=== PATIENT | female | born 1995 | race Caucasian/White ===

== ENCOUNTER 2019-10-02 04:30 | Emergency (ER) | payer MEDICAID ==
[~2019-10-02] VITALS: Ht 167.6 cm; Wt 59.1 kg
[2019-10-02] MEDS ORDERED: LIDOcaine Viscous 15ml cup TP ONE (04:40)
[2019-10-02] MEDS ORDERED: mag hydrox/Alum hydrox/simeth 30ml oral suspension PO ONE (04:40)
[2019-10-02] MEDS ORDERED: famotidine 20mg tablet PO ONE (04:40)
[2019-10-02 05:24] LABS: URINE HCG NEGATIVE (NEG)
[2019-10-02 05:34] LABS: CLARITY,URINE SLIGHTLY CLOUDY (Clear); COLOR,URINE YELLOW (Yellow); GLUCOSE, URINE NEGATIVE (Neg); KETONES,URINE NEGATIVE (Neg); LEUKOCYTE ESTERASE ,URINE TRACE (Neg); NITRITES, URINE NEGATIVE (Neg); OCCULT BLOOD,URINE LARGE (Neg); PROTEIN,URINE NEGATIVE (Neg); UROBILINOGEN,URINE 0.2 E.U/dL (0.2-1.0)
[2019-10-02 05:34] LABS: ALANINE AMINOTRANSFERASE 19 U/L (12-78); ALBUMIN 3.8 G/DL (3.4-5.0); ALKALINE PHOSPHATASE 103 IU/L (46-116); ANION GAP 7 (8-16); ASPARTATE AMINO TRANSFERASE 11 U/L (10-37); BILIRUBIN,TOTAL 0.4 MG/DL (0.1-1.0); BLOOD UREA NITROGEN 16 MG/DL (7-18); BUN/CREATININE RATIO 21.1 (6.6-38.0); CALCIUM 9.3 MG/DL (8.5-10.1); CHLORIDE 104 MMOL/L (99-107); CREATININE 0.76 MG/DL (0.40-0.90); GLUCOSE 101 MG/DL (70-104); POTASSIUM 3.3 MMOL/L (3.5-5.1); SODIUM 140 MMOL/L (135-145); TOTAL CARBON DIOXIDE 28.8 MMOL/L (24-32); TOTAL PROTEIN 7.5 G/DL (6.4-8.2); eGFR > 90 ML/MIN
[2019-10-02 05:41] LABS: BETA HCG,QUANTITATIVE < 1.0 mIU/ml; LIPASE 153 U/L (73-393)
[2019-10-02] MEDS ORDERED: HYDROcodone/acetaminophen 5mg/325mg tablet PO ONE (05:50)
[2019-10-02 05:51] LABS: UA COLLECTION TYPE CLN CATCH MIDSTREAM
[2019-10-02 05:51] LABS: BASOPHILS % (AUTO) 0.1 % (0-1); EOSINOPHILS # (AUTO) 0.1 X10'3 (0-0.9); EOSINOPHILS % (AUTO) 1.8 % (0-6); HEMATOCRIT 37.9 % (35.0-45.0); HEMOGLOBIN 12.9 g/dl (12.0-16.0); LYMPHOCYTES # (AUTO) 1.5 X10'3 (1.1-4.8); LYMPHOCYTES % (AUTO) 23.1 % (21-51); MEAN CORPUSCULAR HEMOGLOBIN 29.7 PG (27.0-31.0); MEAN CORPUSCULAR HGB CONC 34.1 g/dL (33.0-36.5); MEAN CORPUSCULAR VOLUME 86.9 FL (78-98); MEAN PLATELET VOLUME 10.1 FL (7.4-10.4); MONOCYTES # (AUTO) 0.6 X10'3 (0-0.9); MONOCYTES % (AUTO) 9.5 % (2-12); NEUTROPHILS # (AUTO) 4.2 X10'3 (1.8-7.7); NEUTROPHILS % (AUTO) 65.5 % (42-75); PLATELET COUNT 167 X10'3 (140-440); RED BLOOD COUNT 4.36 X10'6 (4.20-5.60); RED CELL DISTRIBUTION WIDTH 13.7 % (11.5-14.5); WHITE BLOOD COUNT 6.4 X10'3 (4.5-11.0)
[2019-10-02 05:56] LABS: BACTERIA,URINE FEW /HPF (Neg); MUCUS STRANDS MANY /LPF (Neg); SQUAMOUS EPITHELIAL CELL,UR MANY /LPF (FEW)
[2019-10-02 05:57] LABS: TRICHOMONAS,URINE FEW /HPF (NEGATIVE); YEAST FEW /HPF (NEGATIVE)
[2019-10-02 05:59] LABS: H PYLORI ANTIBODY NEGATIVE (Neg)
[2019-10-02] MEDS ORDERED: OMEP20TA5 PO (06:08)
[2019-10-02] MEDS ORDERED: NO HOME MEDS (06:15)
[2019-10-02 07:44] VITALS: BP 115/68
--- NOTE | 2019-10-02 07:45 | NUR ---
PT FEELING BETTER THAN WHEN SHE CAME IN. READY TO GO HOME.
== END 2019-10-02 07:47 | disposition home or self-care (01) ==
LOC: ER 04:30
DX: K29.70 Gastritis, unspecified, without bleeding (principal)
CPT/HCPCS: 36415; 74176; 80053; 81001; 81025; 83690; 84702; 85025; 86677; 99284

== ENCOUNTER 2019-10-13 11:09 | Emergency (ER) | payer MEDICAID ==
[~2019-10-13] VITALS: Ht 167.6 cm; Wt 57.3 kg
[~2019-10-13 11:09] MED LIST: NO HOME MEDS
[2019-10-13 11:26] VITALS: BP 124/82
--- NOTE | 2019-10-13 13:48 | NUR ---
PT. CALLED MULTIPLE TIMES. WAS HERE LESS THEN 10 DAYS AGO. DIAGNOSED WITH GASTRITIS
== END 2019-10-13 13:00 | disposition left against medical advice (07) ==
LOC: ER 11:10
DX: R10.9 Unspecified abdominal pain (principal); R07.89 Other chest pain; Z53.21 Procedure and treatment not carried out due to patient leaving prior to being seen by health care provider
CPT/HCPCS: 93005

== ENCOUNTER 2020-03-20 20:41 | Emergency (ER) | payer MEDICAID ==
[~2020-03-20] VITALS: Ht 167.6 cm; Wt 65.0 kg
[2020-03-20] MEDS ORDERED: HYDR-3965 PO (21:11)
[2020-03-20 21:18] VITALS: BP 118/74
== END 2020-03-20 21:19 | disposition home or self-care (01) ==
LOC: ER 20:41
DX: H72.91 Unspecified perforation of tympanic membrane, right ear (principal); H92.01 Otalgia, right ear
CPT/HCPCS: 99283

== ENCOUNTER 2022-02-25 22:29 | Emergency (ER) | payer MEDICAID ==
[~2022-02-25] VITALS: Ht 167.6 cm; Wt 55.5 kg
[2022-02-25 22:53] LABS: CLARITY,URINE CLEAR (Clear); COLOR,URINE YELLOW (Yellow); GLUCOSE, URINE NEGATIVE (Neg); KETONES,URINE NEGATIVE (Neg); LEUKOCYTE ESTERASE ,URINE NEGATIVE (Neg); NITRITES, URINE NEGATIVE (Neg); OCCULT BLOOD,URINE NEGATIVE (Neg); PH,URINE 6.5 (4.8-8.0); PROTEIN,URINE NEGATIVE (Neg); UROBILINOGEN,URINE 0.2 E.U/dL (0.2-1.0)
[2022-02-25 22:54] LABS: URINE HCG NEGATIVE (NEG)
[2022-02-25 23:15] LABS: BASOPHILS % (AUTO) 0.3 % (0-1); EOSINOPHILS # (AUTO) 0.1 X10'3 (0-0.9); EOSINOPHILS % (AUTO) 2.1 % (0-6); HEMATOCRIT 39.5 % (35.0-45.0); HEMOGLOBIN 13.4 g/dl (12.0-16.0); LYMPHOCYTES # (AUTO) 1.8 X10'3 (1.1-4.8); LYMPHOCYTES % (AUTO) 42.3 % (21-51); MEAN CORPUSCULAR HEMOGLOBIN 29.3 PG (27.0-31.0); MEAN CORPUSCULAR HGB CONC 33.8 g/dL (33.0-36.5); MEAN CORPUSCULAR VOLUME 86.7 FL (78-98); MONOCYTES # (AUTO) 0.3 X10'3 (0-0.9); MONOCYTES % (AUTO) 7.2 % (2-12); NEUTROPHILS % (AUTO) 48.1 % (42-75); PLATELET COUNT 183 X10'3 (140-440); RED BLOOD COUNT 4.55 X10'6 (4.20-5.60); RED CELL DISTRIBUTION WIDTH 13.3 % (11.5-14.5); WHITE BLOOD COUNT 4.1 X10'3 (4.5-11.0)
[2022-02-25 23:16] LABS: UA COLLECTION TYPE CLN CATCH MIDSTREAM
[2022-02-25 23:23] LABS: ALANINE AMINOTRANSFERASE 26 U/L (12-78); ALBUMIN 4.1 G/DL (3.4-5.0); ALBUMIN/GLOBULIN RATIO 1.2 (1.1-1.5); ALKALINE PHOSPHATASE 79 IU/L (46-116); ANION GAP 13 (8-16); ASPARTATE AMINO TRANSFERASE 15 U/L (10-37); BILIRUBIN,TOTAL 0.3 MG/DL (0.1-1.0); BLOOD UREA NITROGEN 16 MG/DL (7-18); CALCIUM 8.5 MG/DL (8.5-10.1); CHLORIDE 105 MMOL/L (99-107); GLUCOSE 88 MG/DL (70-104); LIPASE 171 U/L (73-393); POTASSIUM 3.5 MMOL/L (3.5-5.1); SODIUM 142 MMOL/L (135-145); TOTAL CARBON DIOXIDE 23.7 MMOL/L (24-32); TOTAL PROTEIN 7.6 G/DL (6.4-8.2); eGFR 88 ML/MIN
[2022-02-26] MEDS ORDERED: ondansetron 4mg rapidly disintigrating tab PO ONE (01:00)
[2022-02-26] MEDS ORDERED: dicyclomine 10 MG capsule PO ONE (01:00)
[2022-02-26] MEDS ORDERED: ibuprofen tablet 400 MG TABLET PO ONE (01:00)
[2022-02-26] MEDS ORDERED: MELO-100 PO (01:00)
[2022-02-26] MEDS ORDERED: ONDA8TAB13 PO (01:00)
[2022-02-26] MEDS ORDERED: acetaminophen 325mg tablet PO ONE (01:00)
[2022-02-26 01:09] VITALS: BP 128/82
== END 2022-02-26 01:19 | disposition home or self-care (01) ==
LOC: ER 22:30
DX: N94.6 Dysmenorrhea, unspecified (principal); R10.84 Generalized abdominal pain; R11.0 Nausea; Z87.440 Personal history of urinary (tract) infections; Z90.49 Acquired absence of other specified parts of digestive tract; Z79.899 Other long term (current) drug therapy
CPT/HCPCS: 36415; 80053; 81003; 81025; 83690; 85025; 99284

== ENCOUNTER 2022-07-22 23:12 | Emergency (ER) | payer MEDICAID ==
[~2022-07-22] VITALS: Ht 170.2 cm; Wt 50.0 kg
[~2022-07-22 23:12] MED LIST changes: +MELO-100 PO; +ONDA8TAB13 PO
[2022-07-22 23:48] VITALS: BP 103/65
== END 2022-07-23 03:47 | disposition left against medical advice (07) ==
LOC: ER 23:13
DX: M79.602 Pain in left arm (principal); Z53.21 Procedure and treatment not carried out due to patient leaving prior to being seen by health care provider